=== PATIENT | male | born 1990 | race Caucasian/White ===

== ENCOUNTER → 2025-01-30 | Outpatient (CLI) | payer MEDICAID | END | disposition home or self-care (01) | LOC: RAD 10:23 | PROVIDERS: ATTEND Family Medicine | DX: K42.9 Umbilical hernia without obstruction or gangrene (principal); R10.2 Pelvic and perineal pain | CPT/HCPCS: 76705 ==

== ENCOUNTER 2025-05-04 10:54 | Day surgery (SDC) | payer MEDICAID ==
[2025-04-27 15:31] LABS: MEAN PLATELET VOLUME 8.2 FL (7.4-10.4); PRE OP HEMATOCRIT 42.0 % (42.0-52.0); PRE OP HEMOGLOBIN 14.4 g/dL (14.0-17.9); PRE OP PLATELET COUNT 302 X10'3 (140-440); PRE OP WHITE BLOOD COUNT 9.2 10'3 (4.8-10.8); RED CELL DISTRIBUTION WIDTH 13.8 % (11.5-14.5)
[2025-04-27 15:45] LABS: CREATININE 0.77 MG/DL (0.60-1.10); PRE OP ANION GAP 9 (8-16); PRE OP AST 51 U/L (10-37); PRE OP BILIRUB, TOTAL 0.3 MG/DL (0.0-1.0); PRE OP GLUCOSE 117 MG/DL (70-104); PRE OP SODIUM 139 MMOL/L (135-145); TOTAL CARBON DIOXIDE 26.3 MMOL/L (24-32); eGFR > 90 ML/MIN
[2025-04-27 15:46] LABS: PRE OP POTASSIUM 3.9 MMOL/L (3.4-5.1)
[2025-04-27 16:19] LABS: PRE OP ALT 96 U/L (30-65)
[~2025-05-04] VITALS: Ht 185.4 cm; Wt 139.8 kg
[2025-05-04] VITALS (13 sets, daily range): BP systolic 121–154; BP diastolic 69–97; PULSE 67–88; RESP 13–22; TEMP 98; O2SAT 67–98
[2025-05-04] MEDS: CEFAZOLIN 3GM/DEXTROSE 150mL 150 ML IV ONE (05:30)
[~2025-05-04 10:54] MED LIST: NO HOME MEDS
[2025-05-04] MEDS: ringers solution, lacted 1,000 ML IV SCH (11:24)
[2025-05-04] MEDS ORDERED: fentaNYL/PF 50MCG/1 ML 2ML syringe IV PRN ×2 (12:05)
[2025-05-04] MEDS ORDERED: ringers solution, lacted 1,000 ML IV SCH (12:05)
[2025-05-04] MEDS ORDERED: labetalol 20mg/4ml (5mg/ml) syringe IV PRN (12:05)
[2025-05-04] MEDS ORDERED: hydrALAZINE 20mg/ml inj. IV PRN (12:05)
[2025-05-04] MEDS ORDERED: ondansetron/PF 4mg/2ml inj IV PRN (12:05)
[2025-05-04] MEDS ORDERED: LIDOcaine 1% 30ml preserv. free vial ONE (12:48)
[2025-05-04] MEDS ORDERED: BUPIVAcaine 2.5mg/ml inj 50ml vial (contains preservative) ONE (12:48)
[2025-05-04] MEDS ORDERED: rocuronium 10mg/ml inj IV ONE (13:20)
[2025-05-04] MEDS ORDERED: propofol inj 20 ML IV ONE ×2 (13:20)
[2025-05-04] MEDS ORDERED: ondansetron/PF 4mg/2ml inj ONE (13:20)
[2025-05-04] MEDS ORDERED: midazolam 1 mg/ML 2ml injection ONE (13:21)
[2025-05-04] MEDS ORDERED: fentaNYL/PF 50MCG/1 ML 2ML syringe ONE (13:21)
[2025-05-04] MEDS ORDERED: acetaminophen 1,000mg/100ml IV 100 ML IV ONE (13:24)
[2025-05-04] MEDS ORDERED: desflurane 240ml liquid inh. IH ONE (13:25)
[2025-05-04] MEDS ORDERED: LIDOcaine 2% (20mg/ml) 5ml vial ONE (13:25)
[2025-05-04] MEDS ORDERED: labetalol 20mg/4ml (5mg/ml) syringe IV ONE (13:33)
--- NOTE | 2025-05-04 15:33 | OPERATIVE REPORT ---
Operative Report Providers to CC: NELSON JON MD ~ Date of Procedure: May 04, 2025 Pre-Operative Diagnosis: Bilateral inguinal hernia Post-Operative Diagnosis SAME as PRE-Op Procedure Performed Robotic assisted, laparoscopic bilateral inguinal hernia Surgeon: Nelson Jon MD FACS [employer] None Anesthesiologist: Naseem Barger Type of Anesthesia: General Findings: Bilateral indirect inguinal hernias Wound class I Complications None Prosthetics\Implants used: Bilateral large Dextile mesh Estimated Blood Loss: Minimal Specimen Removed: None Description of Procedure: Patient was brought to the operating room and identified by the nursing staff and the attending physician. Patient was placed supine and general anesthesia was induced. The patient's abdomen was prepped and draped in the standard sterile fashion. Preoperative antibiotics were given. Supraumbilical, midline incision was made to accommodate a 12 mm Jones port. Jones technique was used to gain access into the abdomen and the port was anchored to the fascia with 0 Vicryl suture. Abdomen was insufflated without incident. Laparoscope was inserted and the pelvis examined. Patient was placed in Trendelenburg position. Secondary, 8.5 mm robotic trochars were then placed in the right lateral left lateral upper abdomen just above the umbilical line. These were placed under laparoscopic guidance. Local anesthetic was infiltrated prior to their insertion. The da Kemal robotic arm was docked to the patient. Instruments were guided intra-abdominally under laparoscopic visualization. Peritoneal rent was created starting at the left anterior superior iliac spine and carried across the anterior abdominal wall to the contralateral anterior superior iliac spine. The peritoneal flap was created and carried down to the symphysis pubis. Dissection was carried out bilaterally. During the dissection, bilateral, moderate-sized indirect inguinal hernias were encountered. Hernia sacs were reduced. The false hernia sacs were left in place. Defects were moderate in size. Peritoneum was dissected away from the cord structures and out laterally to accommodate 2 separate pieces of large 3-D Dextile mesh. Bilateral critical views of the myopectineal orifice were obtained. Mesh and suture was passed into the abdomen. Bilateral mesh was placed covering potential obturator, femoral, direct, and indirect hernia spaces. Mesh was anchored at Dago's ligament, rectus muscle in the midline, and out laterally just anterior to the anterior superior iliac spine. Mesh laid without wrinkles or folds. Peritoneal rent was then reapproximated with running, absorbable 2/0 V-lock suture. [place] were retrieved. Abdomen was allowed to desufflate after instruments removed and da Kemal robotic arm undocked from the patient. Umbilical port was removed as were the secondary trochars. The fascia at the umbilical port site was closed with 0 Vicryl sutures. Skin was closed at all sites with 4-0 Monocryl sutures in a subcuticular fashion. Sterile dressings were applied. Patient was awakened and taken to the postanesthesia care unit in stable condition. Counts repoted as correct: Yes NELSON JON MD May 04, 2025 15:33
[2025-05-04] MEDS: morphine 4 MG/ML inj SYRINge IV PRN (15:39)
[2025-05-04] MEDS: HYDROcodone/acetaminophen 5mg/325mg tablet PO PRN (16:40)
== END 2025-05-04 16:43 | disposition home or self-care (01) ==
LOC: PAS 10:54
PROVIDERS: ATTEND Surgery
DX: K40.20 Bilateral inguinal hernia, without obstruction or gangrene, not specified as recurrent (principal); Z79.899 Other long term (current) drug therapy; I10 Essential (primary) hypertension; E66.01 Morbid (severe) obesity due to excess calories; E78.5 Hyperlipidemia, unspecified; Z98.52 Vasectomy status; Z68.39 Body mass index [BMI] 39.0-39.9, adult
CPT/HCPCS: 36415; 49650; 80053; 82948; 85025; C1781; J0131; J1100; J2003; J2250; J2270; J2405; J2704; J3010; J3490; J7030; J7120; S2900; Z7506; Z7508; Z7512; A4215; A4618